=== PATIENT | male | born 1955 | race Caucasian/White ===

== ENCOUNTER 2018-01-31 11:50 | Day surgery (SDC) | payer OTHER ==
[2018-01-26 14:53] VITALS: BMI 27.8
[2018-01-31] MEDS ORDERED: Propofol 1,000 MG/100 ML VIAL IV ONE (13:27)
[2018-01-31] MEDS ORDERED: PROPOFOL 200 MG/20 ML VIAL ONE (13:45)
--- NOTE | 2018-01-31 15:36 | MRI ---
MRI OF LEFT SHOULDER PERFORMED WITHOUT CONTRAST ENHANCEMENT: History: Chronic left shoulder pain. FINDINGS: There are moderately severe AC joint hypertrophic changes present. There are moderate tendinopathy changes of the supraspinatous tendon. There is a moderate grade bursa l sided tear, seen slightly more anteriorly. As this extends posteriorly it extends into the undersur face of the tendon. It is a fairly high grade tear. There may be a few articular sided fibers that ar e still intact. High grade component of this extends over 13-14 mm. There is what appears to be a sep arate lower grade undersurface tear of the infraspinatus tendon. A subscapularis tendon is thought to be intact. There is some increased signal change in the undersur face fibers of the superior aspect of the subscapularis tendon probably related to tendinopathy. It c ould also indicate some low grade tear. The intraarticular portion of the biceps tendon is markedly t endiopathic with abnormal signal change basically involving the entire labrum. There is a thickened a ppearing middle glenohumeral ligament incidentally noted. There are arthritic changes of the glenohum eral joint space. No significant atrophy of the subscapularis superior or infraspinatus muscles. Incidental note is mad e of some moderate atrophy of the teres minor muscle. IMPRESSION: 1. Fairly high grade tear of the supraspinatus tendon as discussed above. 2. 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 3. Atrophy of the teres minor muscle which could indicate underlying quadrilateral space syndrome. POS: [facility]
--- NOTE | 2018-01-31 15:47 | EKG ---
Test Reason : MRI Blood Pressure : / mmHG Vent. Rate : 073 BPM Atrial Rate : 073 BPM P-R Int : 180 ms QRS Dur : 158 ms QT Int : 424 ms P-R-T Axes : 045 -44 -33 degrees QTc Int : 467 ms Normal sinus rhythm Left axis deviation Right bundle branch block Inferior infarct , age undetermined T wave abnormality, consider lateral ischemia Abnormal ECG No previous ECGs available Confirmed by GINA DON, DR. Kerr ([id number]) on 01/31/2018 3:46:54 PM Referred By: [facility] Confirmed By:DR. Usha FUENTES MD
== END 2018-01-31 15:30 | disposition home or self-care (01) ==
LOC: SDC/OP 11:50
PROVIDERS: ATTEND Internal Medicine
DX: M75.102 Unspecified rotator cuff tear or rupture of left shoulder, not specified as traumatic (principal); G89.29 Other chronic pain; M25.512 Pain in left shoulder; Z79.82 Long term (current) use of aspirin; Z79.84 Long term (current) use of oral hypoglycemic drugs; Z79.899 Other long term (current) drug therapy
CPT/HCPCS: 93005; 93010; J2704

== ENCOUNTER 2023-04-07 11:11 | Emergency (ER) | payer OTHER ==
[2023-04-07 12:10] LABS: Actual Bicarbonate (HCO3v) 23.3 mEq/L (22-28); Base Excess -2.8 mEq/L (-2.0 to +3.0); Calcium, Ionized (venous) 1.22 mmol/L (1.16-1.32); Chloride (VBG) 103 mmol/L (98-106); Hematocrit-VBG 47 % (42.0-52.0); Hemoglobin (Hb) 15.9 g/dL (12.6-17.4); Potassium (VBG) 4.84 mmol/L (3.70-5.30); Sodium 136 mmol/L (133-146)
[2023-04-07 12:29] LABS: #Basophils 0.1 thou/uL (0.0-0.2); #Eosinphils 0.6 thou/uL (0.0-0.7); #Monocytes 0.7 thou/uL (0.11-0.59); %Basophils 1.1 % (0.0-1.0); %Eosinophils 7.7 % (0.0-10.0); %Monocytes 9.7 % (0.0-10.0); %Neutrophils 56.2 % (42.0-75.0); Hematocrit 45.7 % (42.0-52.0); Hemoglobin 15.1 g/dL (14.0-18.0); Mean Corpuscular Hemoglobin 27.8 pg (27.0-31.0); Mean Corpuscular Volume 84.2 fl (78.0-98.0); Mean Platelet Volume 12.6 fL (7.4-10.4); Platelet Count 133 10x3/uL (130-400); RBC Distribution Width 13.4 % (11.5-14.5); Red Blood Cell (RBC) Count 5.43 mill/uL (4.70-6.10); White Blood Cell (WBC) Count 7.1 10x3/uL (4.8-10.8)
[2023-04-07 12:51] LABS: ALT (SGPT) 18 U/L (8-55); AST (SGOT) 12 U/L (5-34); Albumin 3.5 g/dL (3.4-4.8); Alkaline Phosphatase 105 U/L (40-110); Anion Gap 14 mmol/L (10-20); BUN (Urea Nitrogen) 35 mg/dL (8.4-25.7); Bilirubin, Total 0.6 mg/dL (0.2-1.2); Calc. Creatinine Clearance 0 mL/min (70-130); Calcium 9.6 mg/dL (7.8-10.44); Carbon Dioxide 24 mmol/L (23-31); Chloride 104 mmol/L (98-107); Estimated GFR 37; Globulin 3.3 g/dL (2.4-3.5); Glucose 348 mg/dL (80-115); Potassium 4.8 mmol/L (3.5-5.1); Protein, Total 6.8 g/dL (5.8-8.1); Sodium 137 mmol/L (136-145)
== END 2023-04-07 13:15 | disposition home or self-care (01) ==
LOC: ERS 11:11
DX: E11.65 Type 2 diabetes mellitus with hyperglycemia (principal); Z87.891 Personal history of nicotine dependence; Z79.4 Long term (current) use of insulin
CPT/HCPCS: 36415; 36416; 80053; 82010; 82805; 85025; 96360

== ENCOUNTER 2024-03-09 20:51 | Emergency (ER) | payer OTHER ==
[2024-03-09 21:48] LABS: #Basophils 0.06 10x3/uL (0.0-0.2); %Basophils 0.6 % (0.0-1.0); %Eosinophils 8.5 % (0.0-10.0); %Lymphocytes 15.3 % (21.0-51.0); %Monocytes 7.5 % (0.0-10.0); %Neutrophils 67.6 % (42.0-75.0); Hematocrit 25.5 % (42.0-52.0); Hemoglobin 7.9 g/dL (14.0-18.0); Mean Corpuscular Hemoglobin 25.7 pg (27.0-31.0); Mean Corpuscular Volume 83.1 fL (78.0-98.0); Platelet Count 167 10x3/uL (130-400); RBC Distribution Width 16.4 % (11.5-14.5); Red Blood Cell (RBC) Count 3.07 mill/uL (4.70-6.10)
[2024-03-09 22:50] LABS: ALT (SGPT) 24 U/L (8-55); AST (SGOT) 22 U/L (5-34); Albumin 2.2 g/dL (3.4-4.8); Alkaline Phosphatase 104 U/L (40-110); Anion Gap 14 mmol/L (10-20); BUN (Urea Nitrogen) 58 mg/dL (8.4-25.7); Bilirubin, Total 0.3 mg/dL (0.2-1.2); Calc. Creatinine Clearance 0 mL/min (70-130); Calcium 8.4 mg/dL (7.8-10.44); Carbon Dioxide 20 mmol/L (23-31); Chloride 106 mmol/L (98-107); Estimated GFR 26; Globulin 4.8 g/dL (2.4-3.5); Glucose 177 mg/dL (80-115); Potassium 4.3 mmol/L (3.5-5.1); Sodium 136 mmol/L (136-145)
[2024-03-10] MEDS ORDERED: cefTRIAXone (ROCEPHIN) 2 GM VIAL ONE (00:58)
[2024-03-10] MEDS ORDERED: Sodium Chloride 0.9% 100 ML ONE (00:58)
[2024-03-10] MEDS ORDERED: Morphine 4 MG/ML VIAL ONE (00:58)
== END 2024-03-10 05:22 | disposition short-term general hospital (02) ==
LOC: ERS 20:51
DX: T81.30XA Disruption of wound, unspecified, initial encounter (principal); N17.9 Acute kidney failure, unspecified; D64.9 Anemia, unspecified; I25.10 Atherosclerotic heart disease of native coronary artery without angina pectoris; I25.2 Old myocardial infarction; E11.51 Type 2 diabetes mellitus with diabetic peripheral angiopathy without gangrene; Z87.891 Personal history of nicotine dependence; Z79.82 Long term (current) use of aspirin; Z79.4 Long term (current) use of insulin; Z79.899 Other long term (current) drug therapy
CPT/HCPCS: 80053; 83605; 85025; 87040; 87070; 87077; 87186; 87205; 96374; 96375; J0696; J2272

== ENCOUNTER 2024-06-07 12:15 | Outpatient (CLI) | payer OTHER ==
[2024-06-07] MEDS ORDERED: Iopamidol 370 76% 100 ML VIAL ONE (13:49)
== END 2024-06-07 12:16 | disposition home or self-care (01) ==
LOC: CT 12:15
PROVIDERS: ATTEND Thoracic Surgery (Cardiothoracic Vascular Surgery)
DX: I73.9 Peripheral vascular disease, unspecified (principal); I35.0 Nonrheumatic aortic (valve) stenosis; R22.43 Localized swelling, mass and lump, lower limb, bilateral; Z89.512 Acquired absence of left leg below knee
CPT/HCPCS: 36415; 75635; 82565; Q9967